=== PATIENT | male | born 1950 ===

== ENCOUNTER 2023-08-11 08:40 | Day surgery (SDC) | payer OTHER ==
[~2023-08-11] VITALS: Ht 162.6 cm; Wt 55.8 kg
[2023-08-11] MEDS ORDERED: fentaNYL citrate 0.05 MG/ML VIAL ONE (09:46)
[2023-08-11] MEDS ORDERED: SIMETHICONE 40 MG/0.6 ML ONE (14:56)
[2023-08-11] MEDS ORDERED: LIDOCAINE 2% 100 MG/5 ML UJET TP ONE (16:10)
[2023-08-11] MEDS ORDERED: fentaNYL citrate 0.05 MG/ML VIAL IVP ONE (16:10)
== END 2023-08-11 10:30 | disposition home or self-care (01) ==
LOC: MDS 08:40 → MMU 08:44 → MDS 10:30
PROVIDERS: ATTEND Internal Medicine Gastroenterology
DX: Z12.11 Encounter for screening for malignant neoplasm of colon (principal); I10 Essential (primary) hypertension; E78.00 Pure hypercholesterolemia, unspecified; Z80.0 Family history of malignant neoplasm of digestive organs; Z79.899 Other long term (current) drug therapy
CPT/HCPCS: 45378; J3010